=== PATIENT | male | born 1945 ===

== ENCOUNTER 2018-09-28 11:58 | Outpatient (CLI) | payer OTHER ==
[~2018-09-28 11:58] MED LIST: BACTRIM DS TAB1 EACH; LIPITOR20 MG PO; LISINOPRIL10 MG PO; METFORMIN HCL500 MG PO; TAMS0.4C PO
== END 2018-09-28 14:27 | disposition home or self-care (01) ==
LOC: RAD 11:58
DX: N40.1 Benign prostatic hyperplasia with lower urinary tract symptoms (principal); R97.20 Elevated prostate specific antigen [PSA]; R33.8 Other retention of urine